=== PATIENT | female | born 1965 | race African-American/Black ===

== ENCOUNTER → 2016-04-10 | Outpatient (CLI) | payer SELFPAY | LOC: RAD 10:00 | PROVIDERS: ATTEND Internal Medicine Medical Oncology | DX: C50.919 Malignant neoplasm of unspecified site of unspecified female breast (principal) | CPT/HCPCS: 78306; A9503; Q9969 ==

== ENCOUNTER 2017-02-09 22:25 | Inpatient (IN) | payer SELFPAY ==
[2017-02-09] MEDS ORDERED: NORMAL SALINE 1000 ML 1,000 ML IV ONE (23:06)
[2017-02-09] MEDS ORDERED: KETOROLAC TROMETHAMINE INJ/PF 30 MG/1 ML SDV IV ONE (23:08)
--- NOTE | 2017-02-09 23:10 | ER Document Report ---
ED General - General Chief Complaint: Nausea/Vomiting/Diarrhea Stated Complaint: FLU LIKE SYMPTOMS/BACK PAIN Time Seen by Provider: 02/09/17 22:58 Notes: Patient is 51-year-old female presents with complaint of flulike symptoms. She says she has had back pain that radiates to her flanks. She is also had pain in all her joints. She does have a lot of congestion and coughing. She has had fevers at home. Symptoms started Friday evening. Patient says that she has been around her son who has both influenza a and B. She thinks she caught fluid from him. She denies abdominal pain. She says some vomiting. No diarrhea. No other complaints at this time. Patient does have a history of breast cancer present in remission and not currently on chemotherapy. Patient is allergic to aspirin but takes Motrin ibuprofen without any difficulties. TRAVEL OUTSIDE OF THE [place] IN LAST 30 DAYS: No - Related Data Allergies/Adverse Reactions: aspirin [Aspirin] Allergy (Mild, Verified 02/09/17 22:35) GI upset, shakiness, irritability oxycodone HCl [From Percocet] Allergy (Verified 02/09/17 22:35) Tachycardia venlafaxine [From Effexor] Allergy (Verified 02/09/17 22:35) Past Medical History - Social History Smoking Status: Never Smoker Frequency of alcohol use: None Drug Abuse: None Family History: Thyroid Disfunction Pulmonary Medical History: Reports: Hx Pneumonia - yrs ago Endocrine Medical History: Reports: Hx Hypothyroidism Malignancy Medical History: Reports: Hx Breast Cancer Musculoskeltal Medical History: Reports Hx Arthritis - Hands Past Surgical History: Reports: Hx Breast Surgery - left mastectomy, Hx Mastectomy, Hx Thyroid Surgery, Hx Tubal Ligation - Immunizations Immunizations up to date: Yes Hx Diphtheria, Pertussis, Tetanus Vaccination: Yes - 2010 Review of Systems - Review of Systems Notes: My Normal Review Basic REVIEW OF SYSTEMS: CONSTITUTIONAL : Fever EENT: Denies eye, ear, throat, or mouth pain or symptoms. Denies nasal or sinus congestion. CARDIOVASCULAR: Denies chest pain. RESPIRATORY: Denies cough, cold, or chest congestion. Denies shortness of breath, difficulty breathing, or wheezing. GASTROINTESTINAL: Denies abdominal pain. Has some vomiting. GENITOURINARY: Denies difficulty urinating, painful urination, burning, frequency, or blood in urine. MUSCULOSKELETAL: Pain and joint pain. SKIN: Denies rash or skin lesions. NEUROLOGICAL: Denies altered mental status or loss of consciousness. Denies headache. Denies weakness or paralysis or loss of use of either side. Denies problems with gait or speech. Denies sensory or motor loss. ALL OTHER SYSTEMS REVIEWED AND NEGATIVE. Physical Exam - Vital signs Vitals: Temp Pulse Resp BP Pulse Ox 100.6 F H 125 H 16 108/63 95 02/09/17 22:32 02/09/17 22:32 02/09/17 22:32 02/09/17 22:32 02/09/17 22:32 - Notes Notes: General Appearance: Well nourished, alert, cooperative, no acute distress, recurrent dry cough on exam. Obvious congestion. Vitals: reviewed, See vital signs table. Head: no swelling or tenderness to the head Eyes: PERRL, EOMI, Conjuctiva clear Mouth: No decreasd moisture Throat: No tonsillar inflammation, No airway obstruction, No lymphadenopathy Neck: Supple, no neck tendernes Lungs: No wheezing, No rales, No rhonci, No accessory muscle use, good air exchange bilaterally. Heart: Tachycardic rate, Regular rythm, No murmur, no rub Abdomen: Normal BS, soft, No rigidity, No abdominal tenderness, No guarding, no rebound, no abdominal masses, no organomegaly Back: No reproducible tenderness to palpation of lumbar thoracic spine. Extremities: strength 5/5 in all extremities, good pulses in all extremities, no swelling or tenderness in the extremities, no edema. Skin: warm, dry, appropriate color, no rash Neuro: speech clear, oriented x 3, normal affect, responds appropriately to questions. Course - Re-evaluation Re-evalutation: 02/10/17 02:58 She continues to remain tachycardic. She is hypoxic. At rest her oxygen saturation is between 93-95%. When she ambulated her oxygen saturation actually improved. She continues to have a lot of coughing with little bit tachypnea. My concern is that she is flu B+ and has bilateral infiltrative processes. I did talk to the patient about admission in the hospital to make sure these infiltrative processes do not progress that she improves over the next 24 hours versus discharge with close outpatient follow-up and return to the ER immediately if she worsens. Patient says she prefers to stay she feels unwell. I did speak with the hospitalist, Dr. Doe, who agrees to accept the patient. - Vital Signs Vital signs: Temp Pulse Resp BP Pulse Ox 100.6 F H 110 H 16 114/75 94 02/09/17 22:32 02/09/17 23:00 02/09/17 22:32 02/09/17 23:41 02/10/17 00:16 - Laboratory Result Diagrams: 02/09/17 23:55 02/09/17 23:55 Laboratory results interpreted by me: 02/09/17 02/09/17 23:55 23:55 WBC 13.1 H RBC 3.64 L Hgb 11.7 L Hct 34.4 L Band Neutrophils % 22 H Lymphocytes % (Manual) 4 L Abs Neuts (Manual) 11.9 H Sodium 136.6 L Glucose 143 H Discharge - Discharge Clinical Impression: Influenza B Pneumonia Qualifiers: Pneumonia type: due to unspecified organism Laterality: bilateral Lung location : unspecified part of lung Qualified Code(s): J18.9 - Pneumonia, unspecified organism Condition: Stable Disposition: ADMITTED INPATIENT Admitting Provider: Hospitalist Unit Admitted: Telemetry
--- NOTE | 2017-02-09 23:56 | RADIOLOGY REPORT (SQ) ---
EXAM DESCRIPTION: CHEST PA/LAT COMPLETED DATE/TIME: 02/09/2017 11:43 pm REASON FOR STUDY: cough, fever COMPARISON: 12/16/2011 EXAM PARAMETERS: NUMBER OF VIEWS: two views TECHNIQUE: Digital Frontal and Lateral radiographic views of the chest acquired. RADIATION DOSE: NA LIMITATIONS: none FINDINGS: LUNGS AND PLEURA: Patchy consolidation is present in both lungs, right greater than left. No pneumothorax. No pleural effusion. MEDIASTINUM AND HILAR STRUCTURES: Stable. HEART AND VASCULAR STRUCTURES: Stable. BONES: No acute findings. HARDWARE: Right chest port, stable. Surgical clips in the left axilla. OTHER: No other significant finding. IMPRESSION: Patchy consolidation is present in both lungs, right greater than left. TECHNICAL DOCUMENTATION: JOB ID: [id number] [place]-72 2010 [employer]- All Rights Reserved
[2017-02-10] MEDS ORDERED: LEVOFLOXACIN 750 MG TABLET PO ONE (00:16)
[2017-02-10 00:32] LABS: ANION GAP 8 (5-19); BLOOD UREA NITROGEN 7 mg/dL (7-20); CALCIUM 9.1 mg/dL (8.4-10.2); CARBON DIOXIDE 29 mmol/L (22-30); CHLORIDE 100 mmol/L (98-107); CREATININE RESULT 0.63 mg/dL (0.52-1.25); GLUCOSE 143 mg/dL (75-110); MAGNESIUM 1.6 mg/dL (1.6-2.3); SODIUM 136.6 mmol/L (137-145)
[2017-02-10 01:23] LABS: HEMATOCRIT 34.4 % (36.0-47.0); HEMOGLOBIN 11.7 g/dL (12.0-15.5); HGB HCT DIFFERENCE 0.7; MEAN CORPUSCULAR HEMOGLOBIN 32.2 pg (27.0-33.4); MEAN CORPUSCULAR VOLUME 95 fl (80-97); RED BLOOD COUNT 3.64 10^6/uL (3.72-5.28); RED CELL DISTRIBUTION WIDTH 13.6 % (11.5-14.0); WHITE BLOOD COUNT 13.1 10^3/uL (4.0-10.5)
[2017-02-10] MEDS ORDERED: OSELTAMIVIR PHOSPHATE 75 MG CAPSULE PO ONE (01:30)
[2017-02-10 01:57] LABS: BASOPHILS % (MANUAL) 0 % (0-2); EOSINOPHILS % (MANUAL) 0 % (0-6); LYMPHOCYTES % (MANUAL) 4 % (13-45); TOTAL CELLS COUNTED 100
[2017-02-10 02:00] LABS: RBC MORPHOLOGY COMMENT NORMO-CYTIC/CHROMIC
[2017-02-10 02:01] LABS: BAND NEUTROPHILS % (MANUAL) 22 % (3-5)
[2017-02-10] MEDS ORDERED: SULFAMETHOXAZOLE/TRIMETHOPRIM 800-160 MG TABLET PO ONE (02:56)
[2017-02-10] MEDS ORDERED: MORPHINE SULFATE 10 MG/ML INJ IV PRN ×2 (03:20→07:30)
[2017-02-10] MEDS ORDERED: KETOROLAC TROMETHAMINE INJ/PF 30 MG/1 ML SDV IV PRN ×2 (03:20→07:30)
[2017-02-10] MEDS ORDERED: KETOROLAC TROMETHAMINE INJ/PF 30 MG/1 ML SDV IV ONE (03:20)
[2017-02-10] MEDS ORDERED: LEVALBUTEROL HCL NEB 1.25 MG/3 ML AMPUL NEB PRN ×2 (03:21→07:30)
[2017-02-10] MEDS ORDERED: ACETAMINOPHEN 325 MG TABLET PO PRN (03:21)
[2017-02-10] MEDS ORDERED: BENZONATATE 100 MG CAPSULE PO PRN ×2 (03:26→07:30)
[2017-02-10] MEDS ORDERED: VANCOMYCIN HCL 1,250 MG in DEXTROSE 5%-WATER 250 ML IV ONE (03:27)
[2017-02-10] MEDS ORDERED: NORMAL SALINE 1000 ML 2,000 ML IV ONE (03:29)
[2017-02-10] MEDS ORDERED: VANCOMYCIN HCL 0 MG in DEXTROSE 5%-WATER 250 ML IV NR (03:30)
--- NOTE | 2017-02-10 03:50 | PDOC H&P ---
History of Present Illness Admission Date/PCP: 02/10/17 03:07 UZIEL ARMENDARIZ MD History of Present Illness: DEWAYNE POTTER is a 51 year old female with a PMH of hypothyroidism, breast cancer who presents with complaints of cough and fever. Patient's 13 yo son was recently diagnosed with flu a and flu B. Patient reports that starting on Friday night she began developing fever, nausea, vomiting, diarrhea and subsequent cough with increased shortness of breath. She reports that her cough is productive of yellow sputum. Patient does ascribe to some chest discomfort with coughing. In the emergency department, patient is found to be flu B+ and have bilateral patchy infiltrates on her chest x-ray. Patient qualifies as septic as she has bandemia, leukocytosis, fever, tachycardia. She is referred to the hospital service for sepsis and pneumonia in the setting of influenza positivity. Patient's medications are currently undergoing reconciliation. Current list is automatically generated by [facility] and does not reflect an accurate description of her medications. Due to the urgent/emergent nature of her condition, she is admitted without a full list. Patient does report that she takes only levothyroxine 75 mcg daily and tamoxifen Past Medical History Pulmonary Medical History: Reports: Pneumonia - yrs ago Endocrine Medical History: Reports: Hypothyroidism Malignancy Medical History: Reports: Breast Cancer Musculoskeltal Medical History: Reports: Arthritis - Hands Hematology: Reports: Anemia - Borderline Past Surgical History Past Surgical History: Reports: Mastectomy, Tubal Ligation, Other - Port placement Social History Smoking Status: Never Smoker Frequency of Alcohol Use: None Hx Recreational Drug Use: No Hx Prescription Drug Abuse: No - Advance Directive Resuscitation Status: Full Code Surrogate healthcare decision maker:: Trevin Alphonso, Family History Family History: Malignancy, Thyroid Disfunction Parental Family History Reviewed: Yes Children Family History Reviewed: Yes Sibling(s) Family History Reviewed.: Yes Medication/Allergy Home Medications: Amox Tr/Potassium Clavulanate [Augmentin 875-125 Tablet] 1 tab PO BID 10 Days tablet 08/09/14 Fluticasone Propionate [Flonase Nasal Hiller 50 Mcg/Hiller 16 gm] 1 spray NASL DAILY #1 bottle 08/09/14 Hydrocodone/Acetaminophen [[place] 5-325 Tablet] 1 each PO Q6 #12 tablet 08/09/14 Levothyroxine Sodium 08/09/14 Ondansetron HCl [Zofran 4 mg Tablet] 1 - 2 tab PO Q6 PRN #15 tablet 08/09/14 Tamoxifen Citrate 08/09/14 Allergies/Adverse Reactions: aspirin [Aspirin] Allergy (Mild, Verified 02/09/17 22:35) GI upset, shakiness, irritability oxycodone HCl [From Percocet] Allergy (Verified 02/09/17 22:35) Tachycardia venlafaxine [From Effexor] Allergy (Verified 02/09/17 22:35) Review of Systems Constitutional: PRESENT: anorexia, chills, fatigue, fever(s), headache(s). ABSENT: weight gain, weight loss Eyes: ABSENT: visual disturbances Ears: ABSENT: hearing changes Cardiovascular: PRESENT: chest pain. ABSENT: dyspnea on exertion, edema, orthropnea, palpitations Respiratory: PRESENT: cough, dyspnea, sputum. ABSENT: hemoptysis Gastrointestinal: PRESENT: diarrhea, nausea, vomiting. ABSENT: abdominal pain, constipation, hematemesis, hematochezia, melena Genitourinary: ABSENT: dysuria, hematuria Musculoskeletal: ABSENT: joint swelling Integumentary: ABSENT: rash, wounds Neurological: ABSENT: abnormal gait, abnormal speech, confusion, dizziness, focal weakness, syncope Psychiatric: ABSENT: anxiety, depression, homidical ideation, suicidal ideation Endocrine: ABSENT: cold intolerance, heat intolerance, polydipsia, polyuria Hematologic/Lymphatic: ABSENT: easy bleeding, easy bruising Physical Exam Vital Signs: Temp Pulse Resp BP Pulse Ox 100.6 F H 110 H 16 114/75 94 02/09/17 22:32 02/09/17 23:00 02/09/17 22:32 02/09/17 23:41 02/10/17 00:16 General appearance: PRESENT: mild distress, well-developed, well-nourished Head exam: PRESENT: atraumatic, normocephalic Eye exam: PRESENT: conjunctiva pink, EOMI, PERRLA. ABSENT: conjunctival injection, scleral icterus Ear exam: PRESENT: normal external ear exam Mouth exam: PRESENT: dry mucosa, tongue midline Throat exam: PRESENT: post pharyngeal erythema Neck exam: PRESENT: lymphadenopathy. ABSENT: JVD, thyromegaly, tracheal deviation Respiratory exam: PRESENT: rhonchi, symmetrical, tachypnea, unlabored, wheezes. ABSENT: accessory muscle use, prolonged expiratory phas, rales, retraction Cardiovascular exam: PRESENT: RRR, +S1, +S2, tachycardia. ABSENT: diastolic murmur, rubs, systolic murmur Pulses: PRESENT: normal dorsalis pedis pul Vascular exam: PRESENT: normal capillary refill GI/Abdominal exam: PRESENT: normal bowel sounds, soft. ABSENT: distended, guarding, mass, Barger's sign, organolmegaly, rebound, tenderness Rectal exam: PRESENT: deferred Extremities exam: PRESENT: full ROM. ABSENT: calf tenderness, clubbing, pedal edema Neurological exam: PRESENT: alert, awake, oriented to person, oriented to place , oriented to time, oriented to situation, CN II-XII grossly intact. ABSENT: motor sensory deficit Psychiatric exam: PRESENT: appropriate affect, normal mood. ABSENT: homicidal ideation, suicidal ideation Skin exam: PRESENT: dry, intact, warm. ABSENT: cyanosis, rash Results Laboratory Results: 02/09/17 02/09/17 02/10/17 23:55 23:55 00:30 WBC 13.1 H Hgb 11.7 L Hct 34.4 L Plt Count 190 Band Neutrophils % 22 H Sodium 136.6 L Potassium 4.0 Chloride 100 Carbon Dioxide 29 BUN 7 Creatinine 0.63 Glucose 143 H Calcium 9.1 Magnesium 1.6 Influenza B (Rapid) POSITIVE Impressions: Chest X-Ray 02/09/17 23:06 IMPRESSION: Patchy consolidation is present in both lungs, right greater than left. Status: Imported from PACS Assessment & Plan - Diagnosis (1) Sepsis Qualifiers: Sepsis type: sepsis due to unspecified organism Qualified Code(s): A41.9 - Sepsis, unspecified organism Is this a current diagnosis for this admission?: Yes Plan: Will give patient 2 L normal saline bolus and attempt to keep map greater than 65. Will treat patient for her underlying pneumonia and influenza B. Selected Entries 02/09/17 22:32 Temperature 100.6 F H Pulse Rate 125 H 02/09/17 23:55 WBC 13.1 H Band Neutrophils % 22 H (2) Pneumonia Qualifiers: Pneumonia type: due to unspecified organism Laterality: bilateral Lung location: unspecified part of lung Qualified Code(s): J18.9 - Pneumonia, unspecified organism Is this a current diagnosis for this admission?: Yes Plan: Patient has bilateral multifocal pneumonia in the setting of influenza positivity. Due to this, patient is at increased risk for MRSA infection. Will place patient on vancomycin and Zosyn given her underlying sepsis. Place patient on scheduled nebulized treatments and re-evaluate for improvement. PRN Xopenex Place patient on IV Solu-Medrol Obtain sputum culture (3) Influenza B Is this a current diagnosis for this admission?: Yes Plan: Place patient on Tamiflu 75 mg p.o. twice daily and droplet precautions (4) Hypothyroidism Qualifiers: Hypothyroidism type: postoperative Qualified Code(s): E89.0 - Postprocedural hypothyroidism Is this a current diagnosis for this admission?: Yes Plan: Will check patient's TSH (5) History of breast cancer Is this a current diagnosis for this admission?: Yes Plan: Left arm restrict - Time Time Spent: 50 to 70 Minutes Medications reviewed and adjusted accordingly: Yes Anticipated discharge: Home Within: Other - Upon improvement of symptomatology - Inpatient Certification Based on my medical assessment, after consideration of the patient's comorbidities, presenting symptoms, or acuity I expect that the services needed warrant INPATIENT care.: Yes I certify that my determination is in accordance with my understanding of Medicare's requirements for reasonable and necessary INPATIENT services [42 CFR 412.3e].: Yes Medical Necessity: Need For IV Fluids, Need for Nebulizer Therapy and Monitoring of Response, Need for IV Antibiotics Post Hospital Care: D/C Parts Counter Specialist Documentation
[2017-02-10] MEDS ORDERED: VANCOMYCIN HCL INJ 1000 MG VIAL IV PRN (03:52)
[2017-02-10] MEDS ORDERED: PIPERACILLIN/TAZOBACTAM 4.5 GM VIAL IV PRN (03:54)
[2017-02-10] MEDS ORDERED: LEVOTHYROXINE SODIUM 0.075 MG TABLET PO ONE (04:00)
[2017-02-10] MEDS: METHYLPREDNISOLONE INJ 125 MG/2 ML SDV IV SCH ×3 (05:44→23:31)
[2017-02-10] MEDS: LEVOTHYROXINE SODIUM 0.075 MG TABLET PO SCH (05:44)
[2017-02-10] MEDS ORDERED: VANCOMYCIN HCL INJ 500 MG VIAL ONE (05:53)
[2017-02-10] MEDS ORDERED: VANCOMYCIN HCL INJ 1000 MG VIAL ONE (05:53)
[2017-02-10] MEDS ORDERED: METHYLPREDNISOLONE INJ 40 MG/1 ML SDV IV SCH (06:00)
[2017-02-10] MEDS: IPRATROPIUM/ALBUTEROL 0.5-2.5 MG/3 ML AMPUL NEB SCH ×3 (08:35→20:27)
[2017-02-10] MEDS ORDERED: INFLUENZA ADLT QUAD (36MOS+) 2017-18 VAC 0.5 ML SYR IM PRN (08:39)
[2017-02-10] MEDS: PIPERACILLIN SODIUM/TAZOBACTAM 4.5 GM in NORMAL SALINE 100 ML IV SCH ×3 (10:14→18:57)
[2017-02-10] MEDS: OSELTAMIVIR PHOSPHATE 75 MG CAPSULE PO SCH ×2 (10:27→18:57)
[2017-02-10] MEDS: GUAIFENESIN 600 MG TABLET.SA PO SCH ×2 (10:27→23:31)
[2017-02-10] MEDS: ENOXAPARIN SODIUM INJ 40 MG/0.4 ML DISP.SYRIN SUBCUT SCH (10:29)
--- NOTE | 2017-02-10 14:52 | PDOC PROGRESS REPORT ---
Subjective Progress Note for:: 02/10/17 Subjective:: This is a follow-up visit for pneumonia and influenza B. The patient is sitting up in bed and states that she feels slightly better than when she came in last night. Her cough has certainly been keeping her awake throughout the night and is because some pretty significant rib pain. She is able to use her ICS and get it above 500. She has continued shortness of breath with exertion. Reason For Visit: PNEUMONIA, SEPSIS, INFLUENZA Physical Exam Vital Signs: Temp Pulse Resp BP Pulse Ox 99.5 F 92 18 116/69 96 02/10/17 11:49 02/10/17 14:17 02/10/17 14:17 02/10/17 11:49 02/10/17 14:17 Intake & Output 02/09/17 02/10/17 02/11/17 06:59 06:59 06:59 Intake Total 1050 Output Total 0 Balance 1050 Weight 61.9 kg GENERAL: This is a well-developed and nourished appearing -[place] female resting in bed currently appearing in some pain but overall in no acute distress. HEART: Regular rate and rhythm. No murmurs, rubs or gallops. LUNGS: The patient has coarse breath sounds at the bases bilaterally extending alf up the lung palmer. No obvious wheeze at this time. Her cough is significant. ABDOMEN: Soft, nontender, nondistended with normoactive bowel sounds EXTREMETIES: No clubbing, cyanosis or edema. 2+ peripheral pulses bilaterally. NEURO: Awake, alert and oriented 3. Cranial nerves II through XII are grossly intact. Results Impressions: Chest X-Ray 02/09/17 23:06 IMPRESSION: Patchy consolidation is present in both lungs, right greater than left. Assessment & Plan - Diagnosis (1) Pneumonia Qualifiers: Pneumonia type: due to unspecified organism Laterality: bilateral Lung location: unspecified part of lung Qualified Code(s): J18.9 - Pneumonia, unspecified organism Is this a current diagnosis for this admission?: Yes Plan: Continue current antibiotics. Continue supportive care. The patient is saturating well on room air despite how she feels. She has a significant cough that is causing her tremendous amount of chest pain. See below. (2) Influenza B Is this a current diagnosis for this admission?: Yes Plan: Influenza B with superimposed pneumonia. Continue Tamiflu. At this late date I do not know if it will actually be beneficial but it is worth trying. Supportive care. (3) History of breast cancer Is this a current diagnosis for this admission?: Yes Plan: Continue follow-up care as an outpatient. (4) Hypothyroidism Qualifiers: Hypothyroidism type: postoperative Qualified Code(s): E89.0 - Postprocedural hypothyroidism Is this a current diagnosis for this admission?: Yes Plan: Continue Synthroid. (5) Acute chest wall pain Is this a current diagnosis for this admission?: Yes Plan: Secondary to extreme cough. Will try Tylenol with codeine for cough suppressant and pain control. - Time Time Spent with patient: 15-24 minutes - Inpatient Certification Based on my medical assessment, after consideration of the patient's comorbidities, presenting symptoms, or acuity I expect that the services needed warrant INPATIENT care.: Yes
[2017-02-10] MEDS ORDERED: ACETAMINOPHEN WITH CODEINE #3 TABLET PO ONE (14:54)
[2017-02-10] MEDS ORDERED: ACETAMINOPHEN WITH CODEINE #3 TABLET PO PRN (14:54)
[2017-02-10] MEDS: VANCOMYCIN HCL 1,000 MG in DEXTROSE 5%-WATER 250 ML IV SCH (23:30)
[2017-02-11] MEDS: PIPERACILLIN SODIUM/TAZOBACTAM 4.5 GM in NORMAL SALINE 100 ML IV SCH ×4 (01:56→17:50)
[2017-02-11] MEDS: IPRATROPIUM/ALBUTEROL 0.5-2.5 MG/3 ML AMPUL NEB SCH ×4 (02:14→20:06)
[2017-02-11] MEDS: METHYLPREDNISOLONE INJ 125 MG/2 ML SDV IV SCH ×3 (05:53→21:11)
[2017-02-11 05:54] LABS: HEMATOCRIT 26.9 % (36.0-47.0); MEAN CORPUSCULAR HEMOGLOBIN 32.9 pg (27.0-33.4); MEAN CORPUSCULAR HGB CONC 34.6 g/dL (32.0-36.0); MEAN CORPUSCULAR VOLUME 95 fl (80-97); RED BLOOD COUNT 2.82 10^6/uL (3.72-5.28); RED CELL DISTRIBUTION WIDTH 13.8 % (11.5-14.0); WHITE BLOOD COUNT 10.4 10^3/uL (4.0-10.5)
[2017-02-11] MEDS: LEVOTHYROXINE SODIUM 0.075 MG TABLET PO SCH (05:56)
[2017-02-11 06:04] LABS: ALANINE AMINOTRANSFERASE 26 U/L (9-52); ALBUMIN 2.9 g/dL (3.5-5.0); ALKALINE PHOSPHATASE 49 U/L (38-126); ANION GAP 11 (5-19); ASPARTATE AMINO TRANSFERASE 16 U/L (14-36); BLOOD UREA NITROGEN 6 mg/dL (7-20); CARBON DIOXIDE 21 mmol/L (22-30); CHLORIDE 107 mmol/L (98-107); GLUCOSE 150 mg/dL (75-110); MAGNESIUM 1.6 mg/dL (1.6-2.3); POTASSIUM 3.5 mmol/L (3.6-5.0); SODIUM 138.7 mmol/L (137-145); TOTAL PROTEIN 5.8 g/dL (6.3-8.2)
[2017-02-11 06:21] LABS: HEMOGLOBIN 9.3 g/dL (12.0-15.5)
[2017-02-11 06:28] LABS: BILIRUBIN,TOTAL < 0.1 mg/dL (0.2-1.3)
[2017-02-11 06:58] LABS: BAND NEUTROPHILS % (MANUAL) 10 % (3-5); BASOPHILS % (MANUAL) 0 % (0-2); EOSINOPHILS % (MANUAL) 0 % (0-6); LYMPHOCYTES % (MANUAL) 4 % (13-45); TOTAL CELLS COUNTED 100
[2017-02-11 07:00] LABS: RBC MORPHOLOGY COMMENT NORMO-CYTIC/CHROMIC
[2017-02-11] MEDS: VANCOMYCIN HCL 1,000 MG in DEXTROSE 5%-WATER 250 ML IV SCH ×2 (10:30→21:11)
[2017-02-11] MEDS: OSELTAMIVIR PHOSPHATE 75 MG CAPSULE PO SCH ×2 (10:31→17:50)
[2017-02-11] MEDS: GUAIFENESIN 600 MG TABLET.SA PO SCH ×2 (10:31→21:11)
[2017-02-11] MEDS: ENOXAPARIN SODIUM INJ 40 MG/0.4 ML DISP.SYRIN SUBCUT SCH (10:31)
--- NOTE | 2017-02-11 12:52 | PDOC PROGRESS REPORT ---
Subjective Progress Note for:: 02/11/17 Subjective:: This is a follow-up visit for pneumonia and influenza B. The patient states that she feels stronger than what she did yesterday. The Tylenol 3 helps some with her cough. She still reports extreme shortness of breath with ambulating to the bathroom. Reason For Visit: PNEUMONIA, SEPSIS, INFLUENZA Physical Exam Vital Signs: Temp Pulse Resp BP Pulse Ox 99.0 F 62 20 143/68 H 98 02/11/17 11:33 02/11/17 11:33 02/11/17 11:33 02/11/17 11:33 02/11/17 11:33 Intake & Output 02/10/17 02/11/17 02/12/17 06:59 06:59 06:59 Intake Total 1050 4082 Output Total 0 3200 Balance 1050 882 Weight 61.9 kg 68.6 kg GENERAL: This is a well-developed and nourished appearing -[place] female resting in bed currently appearing more vibrant and in no acute distress. HEART: Regular rate and rhythm. No murmurs, rubs or gallops. LUNGS: The patient has coarse breath sounds at the bases bilaterally extending retirement up the lung palmer. No obvious wheeze at this time. Her cough is less pronounced at the moment. Occasionally she has to take breaks in speaking due to breathlessness. ABDOMEN: Soft, nontender, nondistended with normoactive bowel sounds EXTREMETIES: No clubbing, cyanosis or edema. 2+ peripheral pulses bilaterally. NEURO: Awake, alert and oriented 3. Cranial nerves II through XII are grossly intact. Results Laboratory Results: 02/11/17 05:29 02/11/17 05:29 02/11/17 02/11/17 05:29 05:29 WBC 10.4 RBC 2.82 L Hgb 9.3 L D Hct 26.9 L MCV 95 MCH 32.9 MCHC 34.6 RDW 13.8 Plt Count 156 Seg Neutrophils % Not Reportable Lymphocytes % Not Reportable Monocytes % Not Reportable Eosinophils % Not Reportable Basophils % Not Reportable Absolute Neutrophils Not Reportable Absolute Lymphocytes Not Reportable Absolute Monocytes Not Reportable Absolute Eosinophils Not Reportable Absolute Basophils Not Reportable Sodium 138.7 Potassium 3.5 L Chloride 107 Carbon Dioxide 21 L Anion Gap 11 BUN 6 L Creatinine 0.70 Est GFR ( Amer) > 60 Est GFR (Non-Af Amer) > 60 Glucose 150 H Calcium 8.0 L Magnesium 1.6 Total Bilirubin < 0.1 L AST 16 ALT 26 Alkaline Phosphatase 49 Total Protein 5.8 L Albumin 2.9 L Impressions: Chest X-Ray 02/09/17 23:06 IMPRESSION: Patchy consolidation is present in both lungs, right greater than left. Assessment & Plan - Diagnosis (1) Pneumonia Qualifiers: Pneumonia type: due to unspecified organism Laterality: bilateral Lung location: unspecified part of lung Qualified Code(s): J18.9 - Pneumonia, unspecified organism Is this a current diagnosis for this admission?: Yes Plan: Continue current antibiotics. Continue supportive care. The patient is saturating well on oxygen via nasal cannula. She has a significant cough that is causing her tremendous amount of chest pain. See below. (2) Influenza B Is this a current diagnosis for this admission?: Yes Plan: Influenza B with superimposed pneumonia. Continue Tamiflu. Continue supportive care. (3) History of breast cancer Is this a current diagnosis for this admission?: Yes Plan: Continue follow-up care as an outpatient. (4) Hypothyroidism Qualifiers: Hypothyroidism type: postoperative Qualified Code(s): E89.0 - Postprocedural hypothyroidism Is this a current diagnosis for this admission?: Yes Plan: Continue Synthroid. (5) Acute chest wall pain Is this a current diagnosis for this admission?: Yes Plan: Secondary to extreme cough. Continue Tylenol 3 as needed. Continue Mucinex. - Time Time Spent with patient: 15-24 minutes - Inpatient Certification Medical Necessity: Need Close Monitoring Due to Risk of Patient Decompensation
[2017-02-11] MEDS ORDERED: POTASSIUM CHLORIDE 10 MEQ TABLET.SA PO ONE (13:30)
[2017-02-12] MEDS: PIPERACILLIN SODIUM/TAZOBACTAM 4.5 GM in NORMAL SALINE 100 ML IV SCH ×5 (00:33→23:27)
[2017-02-12] MEDS: IPRATROPIUM/ALBUTEROL 0.5-2.5 MG/3 ML AMPUL NEB SCH ×4 (01:59→20:45)
[2017-02-12] MEDS: METHYLPREDNISOLONE INJ 125 MG/2 ML SDV IV SCH ×3 (06:05→21:35)
[2017-02-12] MEDS: LEVOTHYROXINE SODIUM 0.075 MG TABLET PO SCH (06:05)
[2017-02-12] MEDS: VANCOMYCIN HCL 1,000 MG in DEXTROSE 5%-WATER 250 ML IV SCH ×2 (10:05→21:34)
[2017-02-12] MEDS: GUAIFENESIN 600 MG TABLET.SA PO SCH ×2 (10:05→21:35)
[2017-02-12] MEDS: OSELTAMIVIR PHOSPHATE 75 MG CAPSULE PO SCH ×2 (10:06→17:39)
[2017-02-12] MEDS: ENOXAPARIN SODIUM INJ 40 MG/0.4 ML DISP.SYRIN SUBCUT SCH (10:06)
[2017-02-12] MEDS: MORPHINE SULFATE 10 MG/ML INJ IV PRN (10:08)
[2017-02-12] MEDS: NORMAL SALINE 1000 ML 1,000 ML IV PRN (14:01)
--- NOTE | 2017-02-12 14:16 | PDOC PROGRESS REPORT ---
Subjective Progress Note for:: 02/12/17 Subjective:: she reports continued cough, nonproductive with the phlegm sticking in her central chest and difficult to clear; she has chest wall pain related to her cough, worse with deep breathing and cough and improved with rapid shallow breathing and rest. she becomes very SOA with minimal movement and fatigues very easiliy. she denies fevers/chills, n/v/d, rash, myalgias, arthralgias. she reports mild TURCIOS with use of albuterol. ROS: all systems reviewed, see above, remaining systems negative. Reason For Visit: PNEUMONIA, SEPSIS, INFLUENZA Physical Exam Vital Signs: Temp Pulse Resp BP Pulse Ox 98.5 F 84 18 151/78 H 100 02/12/17 12:00 02/12/17 12:00 02/12/17 12:00 02/12/17 12:00 02/12/17 12:00 Intake & Output 02/11/17 02/12/17 02/13/17 06:59 06:59 06:59 Intake Total 4082 4086 Output Total 3200 204 Balance 882 3882 Weight 68.6 kg 68.6 kg General appearance: PRESENT: no acute distress, well-developed, well-nourished Head exam: PRESENT: atraumatic, normocephalic Eye exam: PRESENT: EOMI. ABSENT: scleral icterus Mouth exam: PRESENT: moist Neck exam: ABSENT: lymphadenopathy, tracheal deviation Respiratory exam: PRESENT: accessory muscle use, chest wall tenderness, crackles , tachypnea. ABSENT: rhonchi, wheezes Cardiovascular exam: PRESENT: RRR. ABSENT: rubs, systolic murmur Pulses: PRESENT: normal radial pulses GI/Abdominal exam: PRESENT: normal bowel sounds, soft. ABSENT: tenderness Extremities exam: ABSENT: calf tenderness, pedal edema Musculoskeletal exam: PRESENT: ambulatory, normal inspection Neurological exam: PRESENT: alert, awake, oriented to person, oriented to place , oriented to time Psychiatric exam: PRESENT: appropriate affect, normal mood Skin exam: ABSENT: rash Results Laboratory Results: 02/11/17 05:29 02/11/17 05:29 Assessment & Plan - Diagnosis (1) Pneumonia Qualifiers: Pneumonia type: due to unspecified organism Laterality: bilateral Lung location: unspecified part of lung Qualified Code(s): J18.9 - Pneumonia, unspecified organism Is this a current diagnosis for this admission?: Yes Plan: I see no risk factor for MRSA and so no indication for continued Vanc at this point. I do think a superimposed bacterial pneumonia is possible so will continue the Zosyn. (2) Influenza B Is this a current diagnosis for this admission?: Yes Plan: continue Tamiflu. multiple family members have been diagnosed with both influenza A and B and they have begun tamiflu. I suspect this is largely the etiology of her symptoms. (3) Acute chest wall pain Is this a current diagnosis for this admission?: Yes Plan: pleuritic chest pain from the above; continue medrol, add NSAIDs prn (4) Hypothyroidism Qualifiers: Hypothyroidism type: postoperative Qualified Code(s): E89.0 - Postprocedural hypothyroidism Is this a current diagnosis for this admission?: Yes Plan: continue thyroid hormone - Time Time Spent with patient: 15-24 minutes Medications reviewed and adjusted accordingly: Yes
[2017-02-12] MEDS: KETOROLAC TROMETHAMINE INJ/PF 30 MG/1 ML SDV IV SCH (21:35)
[2017-02-12] MEDS ORDERED: CLONIDINE HCL 0.2 MG TABLET PO ONE (21:58)
[2017-02-12] MEDS ORDERED: HYDRALAZINE HCL INJ/PF 20 MG/1 ML SDV IV PRN (21:58)
[2017-02-12] MEDS ORDERED: CHLORPHENIRAMINE MALEATE 4 MG TABLET PO ONE (22:00)
[2017-02-12] MEDS ORDERED: CHLORPHENIRAMINE MALEATE 4 MG TABLET ONE (23:01)
[2017-02-12] MEDS ORDERED: FLUTICASONE NASAL SPRAY 50 MCG/SPRY 120 SPRAY/16 GM ONE (23:01)
[2017-02-12] MEDS: FLUTICASONE NASAL SPRAY 50 MCG/SPRY 120 SPRAY/16 GM NASL SCH (23:27)
[2017-02-13] MEDS: IPRATROPIUM/ALBUTEROL 0.5-2.5 MG/3 ML AMPUL NEB SCH ×4 (02:10→19:36)
[2017-02-13] MEDS: METHYLPREDNISOLONE INJ 125 MG/2 ML SDV IV SCH (05:41)
[2017-02-13] MEDS: LEVOTHYROXINE SODIUM 0.075 MG TABLET PO SCH (05:41)
[2017-02-13] MEDS: KETOROLAC TROMETHAMINE INJ/PF 30 MG/1 ML SDV IV SCH (05:41)
[2017-02-13] MEDS: PIPERACILLIN SODIUM/TAZOBACTAM 4.5 GM in NORMAL SALINE 100 ML IV SCH ×3 (05:41→17:41)
[2017-02-13] MEDS: NORMAL SALINE 1000 ML 1,000 ML IV PRN (05:42)
[2017-02-13] MEDS: MORPHINE SULFATE 10 MG/ML INJ IV PRN (06:40)
[2017-02-13] MEDS: VANCOMYCIN HCL 1,000 MG in DEXTROSE 5%-WATER 250 ML IV SCH (07:55)
[2017-02-13] MEDS ORDERED: FUROSEMIDE INJ/PF 20 MG/2 ML SDV IV ONE (08:19)
[2017-02-13] MEDS: METHYLPREDNISOLONE INJ 40 MG/1 ML SDV IV SCH ×2 (10:10→22:04)
[2017-02-13] MEDS: GUAIFENESIN 600 MG TABLET.SA PO SCH ×2 (10:12→22:04)
[2017-02-13] MEDS: POTASSIUM CHLORIDE 10 MEQ TABLET.SA PO SCH ×2 (10:12→22:04)
[2017-02-13] MEDS: ENOXAPARIN SODIUM INJ 40 MG/0.4 ML DISP.SYRIN SUBCUT SCH (10:12)
[2017-02-13] MEDS: FLUTICASONE NASAL SPRAY 50 MCG/SPRY 120 SPRAY/16 GM NASL SCH ×2 (10:19→22:04)
[2017-02-13] MEDS: OSELTAMIVIR PHOSPHATE 75 MG CAPSULE PO SCH ×2 (10:20→17:41)
--- NOTE | 2017-02-13 11:55 | RADIOLOGY REPORT (SQ) ---
EXAM DESCRIPTION: VENOUS UNILATERAL UPPER COMPLETED DATE/TIME: 02/13/2017 11:44 am REASON FOR STUDY: Right upper ext swelling, poss DVT COMPARISON: None. TECHNIQUE: Dynamic and static solo scale and color images acquired of the right arm venous system. S elected spectral images acquired with additional compression and augmentation maneuvers. The contrala teral subclavian vein and internal jugular vein were also imaged. Images stored on PACS. LIMITATIONS: None. FINDINGS: RIGHT INTERNAL JUGULAR VEIN: Normal phasicity, compression, augmentation. No visualized echogenic material on solo scale. No defects on color images. Comparison opposite side normal. SUBCLAVIAN VEIN: Normal compression, augmentation. No visualized echogenic material on solo scale. No defects on color images. AXILLARY VEIN: Normal compression, augmentation. No visualized echogenic material on solo scale. No d efects on color images. BRACHIAL VEIN: Normal compression, augmentation. No visualized echogenic material on solo scale. No d efects on color images. BASILIC VEIN: Normal compression, augmentation. No visualized echogenic material on solo scale. No de fects on color images. CEPHALIC VEIN: Normal compression, augmentation. No visualized echogenic material on solo scale. No d efects on color images. OTHER: No other significant finding. LEFT SUBCLAVIAN VEIN AND INTERNAL JUGULAR VEIN: Normal phasicity, compression and augmentation. No visualized echogenic material on solo scale. No de fects on color images. IMPRESSION: NO EVIDENCE DVT OR SVT RIGHT ARM. TECHNICAL DOCUMENTATION: JOB ID: [id number] [employer]- All Rights Reserved
--- NOTE | 2017-02-13 17:43 | PDOC PROGRESS REPORT ---
Subjective Progress Note for:: 02/13/17 Subjective:: she has persistent chest wall pain related to her cough, worse with deep breathing and cough and improved with rapid shallow breathing and rest. she becomes very SOA with minimal movement and fatigues very easily. Claims her symptoms are improved with use of morphine allowing her to take a deep breath and tolerate activity better. she denies fevers/chills, n/v/d, rash, myalgias, arthralgias. She also reports tense swelling of her right upper extremity and some swelling of her right foot as well. She previously had peripheral IV site in the right AC running IV fluids. All medications are now being administered through a right-sided anterior chest wall port. ROS: all systems reviewed, see above, remaining systems negative. Reason For Visit: PNEUMONIA, SEPSIS, INFLUENZA Physical Exam Vital Signs: Temp Pulse Resp BP Pulse Ox 98.4 F 82 18 131/62 H 98 02/13/17 16:00 02/13/17 16:00 02/13/17 16:00 02/13/17 16:00 02/13/17 16:00 Intake & Output 02/12/17 02/13/17 02/14/17 06:59 06:59 06:59 Intake Total 4086 5575 Output Total 204 3000 Balance 3882 2575 Weight 68.6 kg 72.1 kg General appearance: PRESENT: no acute distress, well-developed, well-nourished Head exam: PRESENT: atraumatic, normocephalic Eye exam: PRESENT: EOMI. ABSENT: scleral icterus Mouth exam: PRESENT: moist Neck exam: ABSENT: lymphadenopathy, tracheal deviation Respiratory exam: PRESENT: no accessory muscle use, persistent mild chest wall tenderness, crackles, but no tachypnea, rhonchi, wheezes Cardiovascular exam: PRESENT: RRR. ABSENT: rubs, systolic murmur Pulses: PRESENT: normal radial pulses GI/Abdominal exam: PRESENT: normal bowel sounds, soft. ABSENT: tenderness Extremities exam: ABSENT: calf tenderness, pedal edema Musculoskeletal exam: PRESENT: ambulatory, normal inspection Neurological exam: PRESENT: alert, awake, oriented to person, oriented to place , oriented to time Psychiatric exam: PRESENT: appropriate affect, normal mood Skin exam: ABSENT: rash Results Laboratory Results: 02/11/17 05:29 02/11/17 05:29 Impressions: Venous Doppler Study 02/13/17 00:00 IMPRESSION: NO EVIDENCE DVT OR SVT RIGHT ARM. Assessment & Plan - Diagnosis (1) Pneumonia Qualifiers: Pneumonia type: due to unspecified organism Laterality: bilateral Lung location: unspecified part of lung Qualified Code(s): J18.9 - Pneumonia, unspecified organism Is this a current diagnosis for this admission?: Yes Plan: I see no risk factor for MRSA and so no indication for continued Vanc at this point. I do think a superimposed bacterial pneumonia is possible so will continue the Zosyn. (2) Influenza B Is this a current diagnosis for this admission?: Yes Plan: continue Tamiflu. multiple family members have been diagnosed with both influenza A and B and they have begun tamiflu. I suspect this is largely the etiology of her symptoms. (3) Acute chest wall pain Is this a current diagnosis for this admission?: Yes Plan: pleuritic chest pain from the above; continue medrol, added NSAIDs with little relief. Continue morphine. (4) Hypothyroidism Qualifiers: Hypothyroidism type: postoperative Qualified Code(s): E89.0 - Postprocedural hypothyroidism Is this a current diagnosis for this admission?: Yes (5) Swelling in right armpit Is this a current diagnosis for this admission?: Yes Plan: New. Unclear etiology but possibly related to thrombophlebitis from prior IV access. I have ordered stat venous Doppler of right upper extremity that is very reassuring showing no evidence of SVT or DVT. There is also no discrete fluid collection to some subcutaneous edema. Keep the arm elevated as tolerated and continue to monitor. Be given a dose of Lasix. (6) Accelerated hypertension Is this a current diagnosis for this admission?: Yes Plan: Likely related to volume resuscitation and she now appears hypervolemic. Also contribution of pain related to pleurisy. We will add diuretic therapy and monitor for effect. - Time Time Spent with patient: 35 or more minutes Medications reviewed and adjusted accordingly: Yes
[2017-02-14] MEDS: PIPERACILLIN SODIUM/TAZOBACTAM 4.5 GM in NORMAL SALINE 100 ML IV SCH ×2 (00:38→05:42)
[2017-02-14] MEDS: IPRATROPIUM/ALBUTEROL 0.5-2.5 MG/3 ML AMPUL NEB SCH ×4 (01:55→20:41)
[2017-02-14] MEDS: LEVOTHYROXINE SODIUM 0.075 MG TABLET PO SCH (05:42)
[2017-02-14 06:21] LABS: ANION GAP 10 (5-19); BLOOD UREA NITROGEN 10 mg/dL (7-20); CALCIUM 8.2 mg/dL (8.4-10.2); CARBON DIOXIDE 35 mmol/L (22-30); CHLORIDE 95 mmol/L (98-107); CREATININE RESULT 0.81 mg/dL (0.52-1.25); GLUCOSE 122 mg/dL (75-110); MAGNESIUM 1.5 mg/dL (1.6-2.3); POTASSIUM 3.3 mmol/L (3.6-5.0); SODIUM 139.8 mmol/L (137-145)
[2017-02-14 06:50] LABS: HEMATOCRIT 35.7 % (36.0-47.0); HEMOGLOBIN 11.9 g/dL (12.0-15.5); MEAN CORPUSCULAR HEMOGLOBIN 31.3 pg (27.0-33.4); MEAN CORPUSCULAR HGB CONC 33.4 g/dL (32.0-36.0); MEAN CORPUSCULAR VOLUME 94 fl (80-97); RED BLOOD COUNT 3.81 10^6/uL (3.72-5.28); RED CELL DISTRIBUTION WIDTH 13.8 % (11.5-14.0); WHITE BLOOD COUNT 18.5 10^3/uL (4.0-10.5)
[2017-02-14 07:07] LABS: BAND NEUTROPHILS % (MANUAL) 5 % (3-5); BASOPHILS % (MANUAL) 0 % (0-2); EOSINOPHILS % (MANUAL) 0 % (0-6); LYMPHOCYTES % (MANUAL) 6 % (13-45); TOTAL CELLS COUNTED 100
[2017-02-14 07:09] LABS: RBC MORPHOLOGY COMMENT NORMO-CYTIC/CHROMIC; TOXIC GRANULATION 1+
[2017-02-14] MEDS: MAGNESIUM SULFATE/D5W 1 GM/100 ML RTUPB IV SCH ×3 (09:01→12:06)
[2017-02-14] MEDS: METHYLPREDNISOLONE INJ 40 MG/1 ML SDV IV SCH ×2 (10:16→22:04)
[2017-02-14] MEDS: OSELTAMIVIR PHOSPHATE 75 MG CAPSULE PO SCH ×2 (10:24→17:30)
[2017-02-14] MEDS: POTASSIUM CHLORIDE 10 MEQ TABLET.SA PO SCH ×2 (10:25→22:04)
[2017-02-14] MEDS: GUAIFENESIN 600 MG TABLET.SA PO SCH ×2 (10:25→22:04)
[2017-02-14] MEDS: FLUTICASONE NASAL SPRAY 50 MCG/SPRY 120 SPRAY/16 GM NASL SCH ×2 (10:26→22:04)
[2017-02-14] MEDS: ENOXAPARIN SODIUM INJ 40 MG/0.4 ML DISP.SYRIN SUBCUT SCH (10:37)
--- NOTE | 2017-02-14 12:54 | PDOC PROGRESS REPORT ---
Subjective Progress Note for:: 02/14/17 Subjective:: reports the chest wall pain related to her cough has improved. she becomes less SOA with exertion. Reports her symptoms are improved with use of morphine allowing her to take a deep breath and tolerate activity better. she denies fevers/chills, n/v/d, rash, myalgias, arthralgias. She also reports tense swelling of her right upper extremity and some swelling of her right foot as well. She previously had peripheral IV site in the right AC running IV fluids. All medications are now being administered through a right-sided anterior chest wall port. ROS: all systems reviewed, see above, remaining systems negative. Reason For Visit: PNEUMONIA, SEPSIS, INFLUENZA Physical Exam Vital Signs: Temp Pulse Resp BP Pulse Ox 98.8 F 79 22 H 127/68 H 94 02/14/17 11:53 02/14/17 11:53 02/14/17 11:53 02/14/17 11:53 02/14/17 11:53 Intake & Output 02/13/17 02/14/17 02/15/17 06:59 06:59 06:59 Intake Total 5575 1240 Output Total 3000 3000 Balance 2575 -1760 Weight 72.1 kg 72.1 kg General appearance: PRESENT: no acute distress, well-developed, well-nourished Head exam: PRESENT: atraumatic, normocephalic Eye exam: PRESENT: EOMI. ABSENT: scleral icterus Mouth exam: PRESENT: moist Neck exam: ABSENT: lymphadenopathy, tracheal deviation Respiratory exam: PRESENT: no accessory muscle use, breathing easier, no crackles, tachypnea, rhonchi, wheezes Cardiovascular exam: PRESENT: RRR. ABSENT: rubs, systolic murmur Pulses: PRESENT: normal radial pulses GI/Abdominal exam: PRESENT: normal bowel sounds, soft. ABSENT: tenderness Extremities exam: ABSENT: calf tenderness, pedal edema Musculoskeletal exam: PRESENT: ambulatory, normal inspection Neurological exam: PRESENT: alert, awake, oriented to person, oriented to place , oriented to time Psychiatric exam: PRESENT: appropriate affect, normal mood Results Laboratory Results: 02/14/17 06:39 02/14/17 05:29 02/14/17 02/14/17 02/14/17 05:29 05:29 06:39 WBC Cancelled 18.5 H RBC Cancelled 3.81 Hgb Cancelled 11.9 L Hct Cancelled 35.7 L MCV Cancelled 94 MCH Cancelled 31.3 MCHC Cancelled 33.4 RDW Cancelled 13.8 Plt Count Cancelled 286 Seg Neutrophils % Cancelled Not Reportable Lymphocytes % Cancelled Not Reportable Monocytes % Cancelled Not Reportable Eosinophils % Cancelled Not Reportable Basophils % Cancelled Not Reportable Absolute Neutrophils Cancelled Not Reportable Absolute Lymphocytes Cancelled Not Reportable Absolute Monocytes Cancelled Not Reportable Absolute Eosinophils Cancelled Not Reportable Absolute Basophils Cancelled Not Reportable Sodium 139.8 Potassium 3.3 L Chloride 95 L Carbon Dioxide 35 H Anion Gap 10 BUN 10 Creatinine 0.81 Est GFR ( Amer) > 60 Est GFR (Non-Af Amer) > 60 Glucose 122 H Calcium 8.2 L Magnesium 1.5 L Assessment & Plan - Diagnosis (1) Pneumonia Qualifiers: Pneumonia type: due to unspecified organism Laterality: bilateral Lung location: unspecified part of lung Qualified Code(s): J18.9 - Pneumonia, unspecified organism Is this a current diagnosis for this admission?: Yes Plan: I see no risk factor for MRSA and so no indication for continued Vanc at this point. I do think a superimposed bacterial pneumonia she is completed 4 days of Zosyn therapy, will change to Augmentin and monitor for response. (2) Influenza B Is this a current diagnosis for this admission?: Yes (3) Acute chest wall pain Is this a current diagnosis for this admission?: Yes (4) Hypothyroidism Qualifiers: Hypothyroidism type: postoperative Qualified Code(s): E89.0 - Postprocedural hypothyroidism Is this a current diagnosis for this admission?: Yes (5) Swelling in right armpit Is this a current diagnosis for this admission?: Yes Plan: Improved with a dose of Lasix and elevation. Ultrasound was negative for DVT. (6) Accelerated hypertension Is this a current diagnosis for this admission?: Yes Plan: Improved. Likely related to fluid shifts. - Time Time Spent with patient: 25-34 minutes
[2017-02-14] MEDS: AMOXICILLIN TR/POT CLAVULANATE 500-125 MG TAB PO SCH ×2 (14:04→22:04)
[2017-02-14] MEDS ORDERED: ONDANSETRON HCL INJ/PF 4 MG/2 ML SDV IV PRN (17:50)
[2017-02-15] MEDS: IPRATROPIUM/ALBUTEROL 0.5-2.5 MG/3 ML AMPUL NEB SCH ×2 (02:46→07:55)
[2017-02-15] MEDS: LEVOTHYROXINE SODIUM 0.075 MG TABLET PO SCH (05:13)
[2017-02-15] MEDS: AMOXICILLIN TR/POT CLAVULANATE 500-125 MG TAB PO SCH (05:13)
[2017-02-15 06:08] LABS: HEMATOCRIT 34.4 % (36.0-47.0); HEMOGLOBIN 11.4 g/dL (12.0-15.5); HGB HCT DIFFERENCE -0.2; MEAN CORPUSCULAR HEMOGLOBIN 31.5 pg (27.0-33.4); MEAN CORPUSCULAR HGB CONC 33.3 g/dL (32.0-36.0); MEAN CORPUSCULAR VOLUME 95 fl (80-97); RED BLOOD COUNT 3.63 10^6/uL (3.72-5.28); RED CELL DISTRIBUTION WIDTH 13.8 % (11.5-14.0)
[2017-02-15 06:28] LABS: ANION GAP 8 (5-19); BLOOD UREA NITROGEN 13 mg/dL (7-20); CALCIUM 8.2 mg/dL (8.4-10.2); CARBON DIOXIDE 32 mmol/L (22-30); CHLORIDE 96 mmol/L (98-107); CREATININE RESULT 0.75 mg/dL (0.52-1.25); GLUCOSE 121 mg/dL (75-110); MAGNESIUM 2.2 mg/dL (1.6-2.3); POTASSIUM 4.4 mmol/L (3.6-5.0); SODIUM 135.9 mmol/L (137-145)
[2017-02-15 07:48] LABS: BAND NEUTROPHILS % (MANUAL) 2 % (3-5); BASOPHILS % (MANUAL) 0 % (0-2); EOSINOPHILS % (MANUAL) 0 % (0-6); LYMPHOCYTES % (MANUAL) 8 % (13-45); RBC MORPHOLOGY COMMENT NORMO-CYTIC/CHROMIC; TOTAL CELLS COUNTED 100
[2017-02-15 09:04] VITALS: BP 121/62
[2017-02-15] MEDS: ENOXAPARIN SODIUM INJ 40 MG/0.4 ML DISP.SYRIN SUBCUT SCH (09:22)
[2017-02-15] MEDS: FLUTICASONE NASAL SPRAY 50 MCG/SPRY 120 SPRAY/16 GM NASL SCH (09:22)
[2017-02-15] MEDS: METHYLPREDNISOLONE INJ 40 MG/1 ML SDV IV SCH (09:22)
[2017-02-15] MEDS: POTASSIUM CHLORIDE 10 MEQ TABLET.SA PO SCH (09:22)
[2017-02-15] MEDS: GUAIFENESIN 600 MG TABLET.SA PO SCH (09:22)
[2017-02-15] MEDS ORDERED: FLUCONAZOLE 100 MG TABLET PO SCH (10:00)
--- NOTE | 2017-02-15 10:48 | PDOC DISCHARGE SUMMARY ---
General - Admit/Disc Date/PCP Admission Date/Primary Care Provider: 02/10/17 03:07 UZIEL ARMENDARIZ MD Discharge Date: 02/15/17 - Discharge Diagnosis (1) Pneumonia Is this a current diagnosis for this admission?: Yes Summary: She received 4 days of Zosyn and vancomycin which was then changed to Augmentin now 1 day and she continues to show improvement. She should complete course of Augmentin at home. (2) Influenza B Is this a current diagnosis for this admission?: Yes Summary: Improved and off supplemental O2. Continue course of Tamiflu at home. She was counseled regarding viral shedding and contagious exposure. (3) Acute chest wall pain Is this a current diagnosis for this admission?: Yes Summary: Secondary to the above. Markedly improved and not requiring any analgesics over the last 24 hours. Will provide a short course of tramadol for breakthrough discomfort. (4) Hypothyroidism Is this a current diagnosis for this admission?: Yes Summary: Continue levothyroxine (5) Swelling in right armpit Is this a current diagnosis for this admission?: Yes Summary: Improved and secondary to IV fluids (6) Accelerated hypertension Is this a current diagnosis for this admission?: Yes Summary: Secondary to fluid shifts associated with the above. Follow-up with PCP for evaluation and treatment. Currently normotensive - Additional Information Resuscitation Status: Full Code Prescriptions: Amox Tr/Potassium Clavulanate [Augmentin "500" Tablet] 1 tab PO Q8 #21 tablet Benzonatate [Tessalon Perles 100 mg Capsule] 100 mg PO Q8HP PRN #21 capsule PRN Reason: Fluconazole [Diflucan 100 mg Tablet] 100 mg PO DAILY #7 tablet Guaifenesin [Mucinex Sr 600 mg Tablet.sa] 600 mg PO Q12 #20 tablet.sa Oseltamivir Phosphate [Tamiflu 75 mg Capsule] 75 mg PO BID #10 capsule Tramadol HCl 50 mg PO TIDP PRN #10 tablet PRN Reason: Home Medications: Levothyroxine Sodium [Synthroid 0.075 mg Tablet] 0.075 mg PO DAILY 02/10/17 Tamoxifen Citrate [Nolvadex 10 mg Tablet] 10 mg PO BID 02/10/17 Acetaminophen [Tylenol 325 mg Tablet] 650 mg PO Q4HP PRN tablet 02/15/17 Amox Tr/Potassium Clavulanate [Augmentin "500" Tablet] 1 tab PO Q8 #21 tablet 02/15/17 Benzonatate [Tessalon Perles 100 mg Capsule] 100 mg PO Q8HP PRN #21 capsule Fluconazole [Diflucan 100 mg Tablet] 100 mg PO DAILY #7 tablet 02/15/17 Guaifenesin [Mucinex Sr 600 mg Tablet.sa] 600 mg PO Q12 #20 tablet.sa 02/15/17 Oseltamivir Phosphate [Tamiflu 75 mg Capsule] 75 mg PO BID #10 capsule 02/15/17 Tramadol HCl 50 mg PO TIDP PRN #10 tablet 02/15/17 History of Present Illness Patient complains of: Cough and fever History of Present Illness: DEWAYNE POTTER is a 51 year old female with a PMH of hypothyroidism, breast cancer who presents with complaints of cough and fever. Patient's 13 yo son was recently diagnosed with flu a and flu B. Patient reports that starting on Friday night she began developing fever, nausea, vomiting, diarrhea and subsequent cough with increased shortness of breath. She reports that her cough is productive of yellow sputum. Patient does ascribe to some chest discomfort with coughing. In the emergency department, patient is found to be flu B+ and have bilateral patchy infiltrates on her chest x-ray. Patient qualifies as septic as she has bandemia, leukocytosis, fever, tachycardia. She is referred to the hospital service for sepsis and pneumonia in the setting of influenza positivity. Hospital Course Hospital Course: She was admitted to the hospital and started on broad-spectrum antibiotics for presumptive bacterial superinfection with pneumonia. Her course was slow to improve but gradually over the next 5 days she has been weaned off supplemental O2, her pleuritic chest wall pain has improved and not required analgesics for the last 24 hours. She is now able to get up and perform normal activities of daily living without debilitating fatigue or dyspnea and at this point is met maximum medical benefit for an inpatient stay and can continue to convalesce at home. She is hemodynamically stable for discharge at this time. She expresses no concerns to be about going home today. She should complete a course of Augmentin and Tamiflu at home. Physical Exam Vital Signs: Temp Pulse Resp BP Pulse Ox 98.5 F 77 18 121/62 95 02/15/17 08:19 02/15/17 08:19 02/15/17 08:19 02/15/17 08:19 02/15/17 08:19 Intake & Output 02/14/17 02/15/17 02/16/17 06:59 06:59 06:59 Intake Total 1240 1476 Output Total 3000 1600 Balance -1760 -124 Weight 72.1 kg 72.2 kg General appearance: PRESENT: no acute distress, well-developed, well-nourished Mouth exam: PRESENT: moist, neck supple Respiratory exam: PRESENT: unlabored. ABSENT: accessory muscle use, rhonchi, wheezes Cardiovascular exam: PRESENT: RRR Musculoskeletal exam: PRESENT: ambulatory Neurological exam: PRESENT: alert, awake, oriented to person, oriented to place , oriented to time Psychiatric exam: PRESENT: appropriate affect, normal mood Results Laboratory Results: 02/15/17 05:40 02/15/17 05:40 02/15/17 02/15/17 05:40 05:40 WBC 14.0 H RBC 3.63 L Hgb 11.4 L Hct 34.4 L MCV 95 MCH 31.5 MCHC 33.3 RDW 13.8 Plt Count 365 Seg Neutrophils % Not Reportable Lymphocytes % Not Reportable Monocytes % Not Reportable Eosinophils % Not Reportable Basophils % Not Reportable Absolute Neutrophils Not Reportable Absolute Lymphocytes Not Reportable Absolute Monocytes Not Reportable Absolute Eosinophils Not Reportable Absolute Basophils Not Reportable Sodium 135.9 L Potassium 4.4 Chloride 96 L Carbon Dioxide 32 H Anion Gap 8 BUN 13 Creatinine 0.75 Est GFR ( Amer) > 60 Est GFR (Non-Af Amer) > 60 Glucose 121 H Calcium 8.2 L Magnesium 2.2 02/10/17 06:48 Blood Blood Culture - Final NO GROWTH IN 5 DAYS 02/10/17 04:10 Blood Blood Culture - Final NO GROWTH IN 5 DAYS Impressions: Chest X-Ray 02/09/17 23:06 IMPRESSION: Patchy consolidation is present in both lungs, right greater than left. Venous Doppler Study 02/13/17 00:00 IMPRESSION: NO EVIDENCE DVT OR SVT RIGHT ARM. Qualifiers PATEINT BEING DISCHARGED WITH ANY OF THE FOLLOWING DIAGNOSIS?: No VTE patient discharged on overlapping Therapy?: No Reason(s) for not prescribing Overlap Therapy:: Not indicated Plan Discharge Plan: Complete course of antibiotics; follow with PCP of choice in 1 week. Return to emergency department for any worsening condition Time Spent: Greater than 30 Minutes
== END 2017-02-15 12:05 | disposition home or self-care (01) | DRG 195 ==
LOC: ER 22:25 → EH 02-10 03:07 → 4S 02-10 04:58
PROVIDERS: ADMIT Family Medicine; ATTEND Family Medicine
DX: J10.08 Influenza due to other identified influenza virus with other specified pneumonia (principal); R07.89 Other chest pain; E03.9 Hypothyroidism, unspecified; M79.89 Other specified soft tissue disorders; D64.9 Anemia, unspecified; I10 Essential (primary) hypertension; M19.042 Primary osteoarthritis, left hand; M19.041 Primary osteoarthritis, right hand; Z79.899 Other long term (current) drug therapy; Z85.3 Personal history of malignant neoplasm of breast; Z90.10 Acquired absence of unspecified breast and nipple; Z88.6 Allergy status to analgesic agent; Z88.8 Allergy status to other drugs, medicaments and biological substances
CPT/HCPCS: 36415; 71020; 80048; 80053; 80202; 83735; 84443; 85025; 87040; 87804; 93971; 94640; 94799; 96361; 96374; 99284; J1650; J1885; J1940; J2270; J2543; J2920; J2930; J3370; J3475; J3490; J7030; J7060; J7620

== ENCOUNTER 2019-08-04 10:03 | Emergency (ER) | payer SELFPAY ==
[2019-08-04] MEDS ORDERED: ACETAMINOPHEN 325 MG TABLET PO ONE (10:19)
--- NOTE | 2019-08-04 10:24 | ER Document Report ---
ED Extremity Problem, Lower - General Chief Complaint: Ankle Injury Stated Complaint: FALL/ANKLE INJURY Time Seen by Provider: 08/04/19 10:19 Primary Care Provider: [facility] [Provider Group] - Follow up as needed LB MARX MD [Primary Care Provider] - Follow up as needed Mode of Arrival: Wheelchair Information source: Patient Notes: 53-year-old female presented to ED for complaint of pain in her left ankle. She states she was walking across the grass when she felt a pop and her left ankle and causing her to fall down onto her knees. She is alert oriented respirations regular nonlabored speaking in full sentences. She does have a stable history of stage III breast cancer with a mastectomy and a reconstruction surgery. She also had a thyroidectomy and is now on levothyroxine. She has had a bilateral tubal ligation. She does not smoke or drink but she has does use CBD oil. TRAVEL OUTSIDE OF THE [place] IN LAST 30 DAYS: No - HPI Patient complains to provider of: Injury, Pain, Swelling Location: Ankle Occurred: Just prior to arrival Where: Home, Outdoors Onset/Duration: Gradual Quality of pain: Achy, Sharp, Throbbing Severity: Severe Pain Level: 5 Recent injury: Yes Associated symptoms: [place] a pop Exacerbated by: Movement, Walking Relieved by: Nothing - Related Data Allergies/Adverse Reactions: aspirin [Aspirin] Allergy (Mild, Verified 08/04/19 10:13) GI upset, shakiness, irritability oxycodone HCl [From Percocet] Allergy (Verified 08/04/19 10:13) Tachycardia venlafaxine [From Effexor] Allergy (Verified 08/04/19 10:13) Past Medical History - General Information source: Patient - Social History Smoking Status: Never Smoker Frequency of alcohol use: None Drug Abuse: Other - cbd Lives with: Family Family History: Malignancy, Thyroid Disfunction Patient has suicidal ideation: No Patient has homicidal ideation: No - Past Medical History Cardiac Medical History: Reports: None Pulmonary Medical History: Reports: Hx Pneumonia - yrs ago EENT Medical History: Reports: None Neurological Medical History: Reports: None Endocrine Medical History: Reports: Hx Hypothyroidism Renal/ Medical History: Reports: None Malignancy Medical History: Reports: Hx Breast Cancer GI Medical History: Reports: None Musculoskeletal Medical History: Reports Hx Arthritis - Hands Skin Medical History: Reports None Psychiatric Medical History: Reports: None Traumatic Medical History: Reports: None Infectious Medical History: Reports: None Past Surgical History: Reports: Hx Breast Surgery - left mastectomy, Hx Mastec chaz, Hx Thyroid Surgery, Hx Tubal Ligation, Other - Port placement - Immunizations Immunizations up to date: Yes Hx Diphtheria, Pertussis, Tetanus Vaccination: Yes - 2010 Review of Systems - Review of Systems Constitutional: No symptoms reported EENT: No symptoms reported Cardiovascular: No symptoms reported Respiratory: No symptoms reported Gastrointestinal: No symptoms reported Genitourinary: No symptoms reported Female Genitourinary: No symptoms reported Musculoskeletal: Ankle swelling Skin: No symptoms reported Hematologic/Lymphatic: No symptoms reported Neurological/Psychological: No symptoms reported -: Yes All other systems reviewed and negative Physical Exam - Vital signs Vitals: Temp Pulse Resp BP Pulse Ox 98.6 F 72 16 111/55 L 99 08/04/19 10:08 08/04/19 10:08 08/04/19 10:08 08/04/19 10:08 08/04/19 10:08 Interpretation: Normal - General General appearance: Appears well, Alert - HEENT Head: Normocephalic, Atraumatic Eyes: Normal Pupils: PERRL - Respiratory Respiratory status: No respiratory distress Chest status: Nontender Breath sounds: Normal Chest palpation: Normal - Cardiovascular Rhythm: Regular Heart sounds: Normal auscultation Murmur: No - Abdominal Inspection: Normal Distension: No distension Bowel sounds: Normal Tenderness: Nontender Organomegaly: No organomegaly - Back Back: Normal, Nontender - Extremities General upper extremity: Normal inspection, Nontender, Normal color, Normal ROM, Normal temperature General lower extremity: Normal color, Normal temperature. No: Buck's sign Ankle: Tender, Ecchymosis - Pain, Edema, Limited ROM, Unable to bear weight - Neurological Neuro grossly intact: Yes Cognition: Normal Orientation: AAOx4 [place] Coma Scale Eye Opening: Spontaneous [place] Coma Scale Verbal: Oriented Stew Coma Scale Motor: Obeys Commands [place] Coma Scale Total: 15 Speech: Normal Motor strength normal: LUE, RUE, LLE, RLE Sensory: Normal - Psychological Associated symptoms: Normal affect, Normal mood - Skin Skin Temperature: Warm Skin Moisture: Dry Skin Color: Normal Course - Re-evaluation Re-evalutation: 08/04/19 22:28 X-ray was positive for a nondisplaced fracture of the medial malleolus and a spiral fracture of the fibula. She was treated with a posterior ankle and sugar tong splint to prevent any movement of the ankle she was given instructions on crutches and instructed to follow-up with primary care and orthopedics. She was given name and number of orthopedics to call today to schedule follow-up tomorrow. Patient was able to verbalize understanding and agreement with all treatment plans. Patient was discharged home. - Vital Signs Vital signs: Temp Pulse Resp BP Pulse Ox 98.7 F 69 18 123/66 100 08/04/19 11:12 08/04/19 11:12 08/04/19 11:12 08/04/19 11:12 08/04/19 11:12 - Diagnostic Test Radiology reviewed: Image reviewed, Reports reviewed Discharge - Discharge Clinical Impression: fractured distal tibula and fibula Condition: Stable Disposition: HOME, SELF-CARE Additional Instructions: Fractured Ankle (Bimalleolar) You have a fracture of both bones of the lower leg at the ankle. If there is dispacement of the bones from their proper alignment, manipulation of the ankle and foot may be necessary to re-align the bones properly. This fracture wll require a cast for healing and some of the more serious fractures of this type will require surgery. If surgery is not required, the bones requires only protection and sufficient time for healing. The initial treatment is immobilization, elevation, and ice packs. Depending on the type of fracture, immobilization may consist of a splint or cast. The length of time required for healing depends on the type of fracture. You will be referred to an orthopedic surgeon who will re-assess you periodically to make certain that the bone heals without complications. It's important that you follow the instructions given you. Acetaminophen Acetaminophen may be taken for pain relief or fever control. It's much safer than aspirin, offering a wider range of "safe" dosages. It is safe during . Some brand names are Tylenol, Panadol, Datril, Anacin 3, Tempra, and Liquiprin. Acetaminophen can be repeated every four hours. The following are maximum recommended dosages: WEIGHT Dose Drops Elixir Chewable(80mg) (LBS.) drprs=droppers tsp=teaspoon 6 40 mg .4 ml (1/2) 6-11 80 mg .8 ml (full) 1/2 tsp 1 tab 12-16 120 mg 1 1/2 drprs 3/4 tsp 1 1/2 tabs 17-23 160 mg 2 drprs 1 tsp 2 tabs 24-30 240 mg 3 drprs 1 1/2 tsp 3 tabs 30-35 320 mg 2 tsp 4 tabs 36-41 360 mg 2 1/4 tsp 4 1/2 tabs 42-47 400 mg 2 1/2 tsp 5 tabs 48-53 480 mg 3 tsp 6 tabs 54-59 520 mg 3 1/4 tsp 6 1/2 tabs 60-64 560 mg 3 1/2 tsp 7 tabs 65-70 600 mg 3 3/4 tsp 7 1/2 tabs 71-76 640 mg 4 tsp 8 tabs 77-82 720 mg 4 1/2 tsp 9 tabs 83-88 800 mg 5 tsp 10 tabs >89 pounds or adults 650 mg to 900 mg Acetaminophen can be repeated every four hours. Maximum daily dose not to exceed 4000 mg. These maximum recommended dosages are slightly higher than the dosages written on the product container, but these dosages are very safe and well below the toxic dosage for acetaminophen. USE OF CRUTCHES: The doctor has recommended that you not bear weight at this time. You will need to use crutches. Adjust the crutches so the tops come to about two inches under the armpit while you are standing upright. Use your hands -- not your arm pits -- to support your weight. To get into a chair, support yourself with one crutch on the injured side. Hold the chair with the other hand, then lower yourself while putting all your weight on the good leg. Going up stairs is `good leg up, step up, then bring up crutches and bad leg.' Down stairs is `bad leg and crutches down, then bring good leg down.' If you develop numbness or swelling in an arm or hand, you are using the crutches incorrectly. Return if you are having any problems with the crutches. ICE & ELEVATION: Apply ice packs frequently against the painful area. Many different schedules are recommended, such as "20 minutes on, 20 minutes off" or "one hour ice, two hours rest." If you need to work, you may need to go longer between ice treatments. You should plan to have the area ice packed AT LEAST one-fourth of the time. The ice should be applied over the wrap, tape, or splint, or over a layer of cloth -- not directly against the skin. Some ice bags have a built-in cloth and can be put directly on the skin. Your injured part should be elevated as much as possible over the next 48 hours. Try to keep the injury above the level of the heart. Avoid use of the injured area. Elevation and rest will decrease the swelling. USE OF [id number] IBUPROFEN: Ibuprofen (Advil, Nuprin, Medipren, Motrin IB) is a medication for fever and pain control. In addition, it has anti- inflammatory effects which may be beneficial, especially in the treatment of injuries. It's best to take ibuprofen with food. Persons with ulcer disease or allergy to aspirin should notify their physician of this before taking ibuprofen. Ibuprofen can be given every four to six hours, for a total of four doses daily. Age Pain or fever dose Antiinflammatory dose 6-8 yr 200 mg (1 tab) 200 mg (1 tab) 9-11 yr 200 mg (1 tab) 200-400 mg (1-2 tab) 11-14 yr 200-400 mg (1-2 tab) 400 mg (2 tab) 15-adult 400 mg (2 tab) 600 mg (3 tab) FOLLOW-UP CARE: If you have been referred to a physician for follow-up care, call the physicians office for an appointment as you were instructed or within the next two days. If you experience worsening or a significant change in your symptoms, notify the physician immediately or return to the Emergency Department at any time for re-evaluation. Prescriptions: Hydrocodone/Acetaminophen [Cornish 5-325 mg Tablet] 1 tab PO Q6HP PRN #14 tablet PRN Reason: Referrals: LB MARX MD [Primary Care Provider] - Follow up as needed [facility] [Provider Group] - Follow up as needed
--- NOTE | 2019-08-04 10:54 | RADIOLOGY REPORT (SQ) ---
EXAM DESCRIPTION: ANKLE LEFT COMPLETE IMAGES COMPLETED DATE/TIME: 08/04/2019 10:41 am REASON FOR STUDY: Pain swelling pain with ambulation felt a pop COMPARISON: None. NUMBER OF VIEWS: Three views. TECHNIQUE: AP, lateral, and oblique radiographic images acquired of the left ankle. LIMITATIONS: None. FINDINGS: MINERALIZATION: Normal. BONES: Transverse nondisplaced fracture of the medial malleolus and spiral fracture of the distal fib jabari. The talar dome is intact. JOINTS: No effusions. SOFT TISSUES: Soft tissue swelling around the distal fibula. OTHER: No other finding. IMPRESSION: 1. Transverse nondisplaced fracture of the medial malleolus. 2. Spiral fracture of the distal fibula. TECHNICAL DOCUMENTATION: JOB ID: [id number] 2010 [email or web address]- All Rights Reserved Reading location - IP/workstation name: [email or web address]
[2019-08-04 11:13] VITALS: BP 123/66
== END 2019-08-04 11:15 | disposition home or self-care (01) ==
LOC: ER 10:03
DX: S82.442A Displaced spiral fracture of shaft of left fibula, initial encounter for closed fracture (principal); S82.54XA Nondisplaced fracture of medial malleolus of right tibia, initial encounter for closed fracture; W01.0XXA Fall on same level from slipping, tripping and stumbling without subsequent striking against object, initial encounter; Y92.009 Unspecified place in unspecified non-institutional (private) residence as the place of occurrence of the external cause; E89.0 Postprocedural hypothyroidism; Z79.899 Other long term (current) drug therapy; Z85.3 Personal history of malignant neoplasm of breast; Z88.8 Allergy status to other drugs, medicaments and biological substances; Z88.6 Allergy status to analgesic agent; Z88.5 Allergy status to narcotic agent
CPT/HCPCS: 99283

== ENCOUNTER → 2019-08-25 | Outpatient (CLI) | payer SELFPAY ==
--- NOTE | 2019-08-25 11:08 | WOMENS IMAGING REPORT ---
EXAM DESCRIPTION: BONE DENSITY HIP/SPINE IMAGES COMPLETED DATE/TIME: 08/25/2019 10:55 am REASON FOR STUDY: M25.572 PAIN IN LEFT ANKLE AND JOINTS OF LEFT FOOT M25.572 PAIN IN LEFT ANKLE AND JOINTS OF LEFT FOOT COMPARISON: None. TECHNIQUE: Dual-Energy X-ray Absorptiometry (DEXA) of the AP Spine and Hip. LIMITATIONS: None. FINDINGS: LUMBAR SPINE: The bone mineral density (BMD) measured from L1-L4 in the AP projection correlates with a T-score of -0.2, which is normal as defined by the World Health Organization. HIP: The bone mineral density (BMD) measured in the left hip correlates with a T-score of -0.3, which is n ormal as defined by the World Health Organization. IMPRESSION: 1. LUMBAR SPINE: NORMAL. 2. HIP: NORMAL. COMMENT: The World Health Organization defines low BMD as follows: T-score: Normal: Greater than -1.0 Osteopenia: Between -1.0 and -2.5 Osteoporosis: Less than -2.5 without fractures Established osteoporosis: Less than -2.5 with fractures In general, you may wish to consider: Diagnosis Treatment Follow-up DEXA Normal BMD Prevention 2-3 years Osteopenia Prevention/Therapy 1-2 years Osteoporosis Therapy Yearly TECHNICAL DOCUMENTATION: JOB ID: [id number] 2010 [employer]- All Rights Reserved Reading location - IP/workstation name: [email or web address]
== END ==
LOC: WI 10:25
PROVIDERS: ATTEND Orthopaedic Surgery
DX: M25.572 Pain in left ankle and joints of left foot (principal)
CPT/HCPCS: 77080